=== PATIENT | male | born 2000 | race Two or more races ===

== ENCOUNTER 2018-12-18 11:56 | Day surgery (SDC) | payer OTHER ==
[2018-12-18] MEDS ORDERED: ONDANSETRON 4 MG INJ IV (14:00)
[2018-12-18] MEDS ORDERED: PROPOFOL 40 ML (14:07)
[2018-12-18] MEDS ORDERED: LIDOCAINE 2% (SDV) 5 ML INJ (14:07)
[2018-12-18] MEDS ORDERED: EPHEDrine 25 MG/5 ML SYG (14:18)
[2018-12-18] MEDS ORDERED: PROPOFOL 20 ML (14:36)
== END 2018-12-18 16:30 | disposition home or self-care (01) ==
LOC: GIL 11:56
DX: K92.2 Gastrointestinal hemorrhage, unspecified (principal); K64.8 Other hemorrhoids; D12.4 Benign neoplasm of descending colon; D12.5 Benign neoplasm of sigmoid colon; D17.79 Benign lipomatous neoplasm of other sites; K62.1 Rectal polyp
CPT/HCPCS: 45380; 88305